=== PATIENT | female | born 1945 | race Two or more races ===

== ENCOUNTER → 2024-12-22 | Outpatient (CLI) | payer MEDICAID, SELFPAY ==
--- NOTE | 2024-12-22 15:00 | XR_ITS ---
Examination: Screening digital mammography, bilateral Computer aided detection 3-D breast Tomosynthesis, bilateral Date and time of exam: December 22, 2024 1503 hours Compared to mammograms dating to October 05, 2011 Indication: Screening Technique: Nonmagnified MLO, CC views of the breasts to been obtained, reconstructed from 3-D Tomosynthesis images. R2 computer aided detection program utilized for evaluation of suspicious masses and/or abnormal calcifications. 3-D Tomosynthesis images obtained. Findings: Scattered areas of fibroglandular density. 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 Recommend 1 year follow-up mammogram.
[2024-12-22 16:54] LABS: Albumin, Serum 3.9 gm/dL (3.4-4.8); Anion Gap 8 (7-16); BUN/Creatinine Ratio 19 Ratio (12-20); Blood Urea Nitrogen 15 mg/dL (9-23); Calcium 9.4 mg/dL (8.3-10.6); Calcium (Corrected) 9.5 mg/dL (8.5-10.1); Carbon Dioxide 28.5 mMol/L (20.0-31.0); Chloride 108 mMol/L (98-107); Creatinine (Component) 0.8 mg/dL (0.6-1.3); Glucose 84 mg/dL (74-106); Osmolality,Calculated 286 (275-295); Phosphorous 3.8 mg/dL (2.4-5.1); Potassium 4.5 mMol/L (3.4-5.1); Sodium 144 mMol/L (136-145); eGFR > 60 See Note
== END | disposition home or self-care (01) ==
LOC: CDIM 14:44 → COPL 15:15
PROVIDERS: Referring Provider Internal Medicine; Visit Provider Radiology Diagnostic Radiology
DX: Z12.31 Encounter for screening mammogram for malignant neoplasm of breast (principal); R92.8 Other abnormal and inconclusive findings on diagnostic imaging of breast; R92.323 Mammographic fibroglandular density, bilateral breasts; I10 Essential (primary) hypertension
CPT/HCPCS: 36415; 77063; 77067; 80069

== ENCOUNTER → 2025-06-17 | Outpatient (CLI) | payer OTHER, MEDICAID, SELFPAY ==
--- NOTE | 2025-06-17 08:41 | XR_ITS ---
Examination: Abdomen sonogram, Limited Date and time of exam: June 17, 2025 0923 hours INDICATIONS: Right upper abdominal pain beginning one year ago Technique: Real-time saenz scale transabdominal sonographic images of the upper abdomen obtained. Findings: Multiple gallstones, gallbladder sludge Gallbladder wall is thickened 0.8 cm with edema Common bile duct 0.6 cm Pancreatic head 1.4 cm Liver 14.7 cm fatty infiltration Normal hepatopedal portal venous flow Patent IVC IMPRESSION: Acute appearing calculus cholecystitis, consider HIDA scan follow-up
[2025-06-17 10:34] LABS: Basophils # (Auto) 0.0 Thou/mm3 (0.0-0.2); Basophils % (Auto) 0 % (0-2.5); Eosinophils # (Auto) 0.1 Thou/mm3 (0.0-0.5); Eosinophils % (Auto) 1 % (0-10); Hematocrit 40.1 % (36.0-46.0); Hemoglobin 13.0 g/dL (12.0-16.0); Immature Granulocytes Auto 0.05 Thou/mm3 (0.00-0.00); Lymphocytes # (Auto) 1.2 Thou/mm3 (1.0-4.8); Lymphocytes % (Auto) 12 % (10-50); Mean Corpuscular HGB Conc 32.4 g/dl (31.0-37.0); Mean Corpuscular Hemoglobin 25.6 pg (25.0-35.0); Mean Corpuscular Volume 79 fL (80-100); Monocytes # (Auto) 1.0 Thou/mm3 (0.0-0.8); Monocytes % (Auto) 10 % (0-12); Neutrophils # (Auto) 7.4 Thou/mm3 (1.8-7.7); Neutrophils % (Auto) 76 % (37-80); Nucleated Red Blood Cell # 0.00 Thou/mm3 (0.00-0.00); Nucleated Red Blood Cell % 0 /100 WBC (0); Platelet Count 174 Thou/mm3 (140-440); RDW Standard Deviation 46.1 fL (36.4-46.3); Red Blood Count 5.07 Miln/mm3 (4.00-5.20); White Blood Count 9.8 Thou/mm3 (3.6-11.0)
[2025-06-17 10:41] LABS: Glucose Estimated Average 131 mg/dL (80-131); Hemoglobin A1C 6.2 % Hgb (4.8-6.0)
[2025-06-17 10:56] LABS: Alanine Aminotransferase 29 U/L (10-49); Albumin, Serum 4.0 gm/dL (3.4-4.8); Albumin/Globulin Ratio 1.4 (1.2-2.2); Alkaline Phosphatase 178 U/L (46-116); Anion Gap 9 (7-16); Aspartate Amino Transferase 26 U/L (0-34); BUN/Creatinine Ratio 23 Ratio (12-20); Bilirubin,Total 0.5 mg/dL (0.3-1.2); Blood Urea Nitrogen 23 mg/dL (9-23); Calcium 9.4 mg/dL (8.3-10.6); Calcium (Corrected) 9.4 mg/dL (8.5-10.1); Carbon Dioxide 26.0 mMol/L (20.0-31.0); Cardiac Risk Estimate 4.3 RATIO (3.7-5.6); Chloride 103 mMol/L (98-107); Cholesterol 147 mg/dL (132-200); Creatinine (Component) 1.0 mg/dL (0.6-1.3); Globulin 2.8 gm/dL (2.3-3.5); Glucose 95 mg/dL (74-106); HDL Cholesterol 34 mg/dL (40-60); LDL Cholesterol,Calculated 92 mg/dL (0-130); Osmolality,Calculated 279 (275-295); Potassium 4.1 mMol/L (3.4-5.1); Sodium 138 mMol/L (136-145); Thyroid Stimulating Hormone 2.05 uIU/mL (0.55-4.78); Total Protein 6.8 gm/dL (5.7-8.2); Triglycerides 107 mg/dL (30-150); Uric Acid 6.9 mg/dL (3.1-7.8); eGFR 57 See Note
[2025-06-17 11:02] LABS: Vitamin B12 > 2000 pg/mL (211-911); Vitamin D 25 Hydroxy Total 30.1 ng/mL (7.3-40.2)
[2025-06-17 11:12] LABS: Collection Type, Urine Clean Catch
[2025-06-17 12:17] LABS: Bacteria,Urine Rare; Bilirubin,Urine Negative (Negative); Blood,Urine Trace (Negative); Clarity,Urine Clear (Clear/Hazy); Color,Urine Lt-Yellow (Lt Yel-Yel); Glucose, Urine Negative (Negative); Ketones,Urine Negative (Negative); Leukocyte Esterase,Urine Positive (Negative); Nitrite,Urine Negative (Negative); PH,Urine 6.0 (5.0-7.0); Protein,Urine Negative (Neg - Trace); RBC,Urine 2 /hpf (0-3); Specific Gravity,Urine 1.012 (1.001-1.035); Squamous Epithelial Cell,Urine 2 /hpf (0-5); Urobilinogen,Urine Negative mg/dL (0.0-1.0); WBC,Urine 6 /hpf (0-5)
== END | disposition home or self-care (01) ==
LOC: CDIM 08:38 → COPL 09:41
PROVIDERS: PCP Internal Medicine; Referring Provider Internal Medicine; Visit Provider Internal Medicine
DX: R10.11 Right upper quadrant pain (principal); Z00.00 Encounter for general adult medical examination without abnormal findings; I10 Essential (primary) hypertension
CPT/HCPCS: 36415; 76705; 80053; 80061; 81001; 82306; 82607; 83036; 84443; 84550; 85025

== ENCOUNTER 2025-06-18 12:24 | Emergency (ER) | payer OTHER, MEDICAID, SELFPAY ==
[2025-06-18 13:00] VITALS: BP 132/81; PULSE 77; RESP 18; TEMP 37.3; O2SAT 99; BMI 32.5
--- NOTE | 2025-06-18 13:04 | EKG_ITS ---
[facility] Test Date: 2025-06-18 Pat Name: KEREN ANDREWS Department: Room: - Gender: Female Healthcare Consultant: : 1945 Requested By: Mathew Mireles Order Number: [id number] Reading MD: Mathew Mireles Measurements Intervals [place] Rate: 75 P: 20 AK: 155 QRS: -26 QRSD: 93 T: 14 QT: 364 QTc: 409 Interpretive Statements SINUS RHYTHM BORDERLINE LEFT AXIS DEVIATION [QRS AXIS < -20] Compared to ECG 06/27/2022 10:52:50 Sinus bradycardia no longer present /store/S0/[id number]/[id number].pdf
--- NOTE | 2025-06-18 13:08 | XR_ITS ---
Examination: Venous duplex lower extremity sonogram, bilateral. Date and time of exam: June 18, 2025 1346 hours INDICATIONS: Leg pain beginning one week ago Technique: Multiple sonographic images of the deep venous system have been obtained. B-mode/2-D grayscale imaging of vascular structures and Doppler spectral analysis (waveforms) and color performed Both legs are examined. Findings: Deep venous systems do not demonstrate abnormal echogenicity. All visualized deep veins exhibit compressibility. All visualized deep veins exhibit augmentation. Impression: Negative for deep vein thrombosis
--- NOTE | 2025-06-18 13:09 | XR_ITS ---
Examination: CT abdomen and pelvis without contrast. Coronal 3-D reconstructions. Sagittal 2-D reconstructions. Date and time of exam:June 18, 2025 1311 hours INDICATIONS: Generalized abdominal pain today CTDI: vol (mGy): 9.49 DLP: (mGycm): 536 Technique: Axial images of the abdomen have been obtained, 3 mm slice thickness Intravenous contrast material has not been administered. Low dose protocols were performed. One or more of the following dose reduction techniques were used; automated exposure control, adjustment of the mA and/or KV according to patient size, use of iterative reconstruction technique. Findings: No focal liver or splenic lesions Abnormal gallbladder, gallstones, gallbladder distended with thickened gallbladder wall No pancreatic mass Fat-containing 21 mm left adrenal nodule No renal or ureteral calculi, no hydronephrosis No bowel obstruction Normal appendix Colonic diverticulosis, no diverticulitis Urinary bladder intact Right hip arthroplasty with satisfactory alignment IMPRESSION: Acute calculus cholecystitis
[2025-06-18] MEDS: ACETAMINOPHEN 500 MG TABLET PO (13:24)
[2025-06-18 13:34] LABS: Basophils # (Auto) 0.0 Thou/mm3 (0.0-0.2); Basophils % (Auto) 0 % (0-2.5); Eosinophils # (Auto) 0.1 Thou/mm3 (0.0-0.5); Eosinophils % (Auto) 1 % (0-10); Hematocrit 37.8 % (36.0-46.0); Hemoglobin 12.0 g/dL (12.0-16.0); Immature Granulocytes Auto 0.06 Thou/mm3 (0.00-0.00); Lymphocytes # (Auto) 1.4 Thou/mm3 (1.0-4.8); Lymphocytes % (Auto) 15 % (10-50); Mean Corpuscular HGB Conc 31.7 g/dl (31.0-37.0); Mean Corpuscular Hemoglobin 25.2 pg (25.0-35.0); Mean Corpuscular Volume 79 fL (80-100); Monocytes # (Auto) 0.9 Thou/mm3 (0.0-0.8); Monocytes % (Auto) 10 % (0-12); Neutrophils # (Auto) 6.6 Thou/mm3 (1.8-7.7); Neutrophils % (Auto) 73 % (37-80); Nucleated Red Blood Cell # 0.00 Thou/mm3 (0.00-0.00); Nucleated Red Blood Cell % 0 /100 WBC (0); Platelet Count 231 Thou/mm3 (140-440); RDW Standard Deviation 45.6 fL (36.4-46.3); Red Blood Count 4.76 Miln/mm3 (4.00-5.20); White Blood Count 9.1 Thou/mm3 (3.6-11.0)
[2025-06-18 13:48] LABS: INR 1.2 (0.9-1.3); Prothrombin Time 12.6 Seconds (9.0-12.2)
[2025-06-18 13:53] LABS: Collection Type, Urine Clean Catch
[2025-06-18 13:53] LABS: Alanine Aminotransferase 28 U/L (10-49); Albumin, Serum 4.1 gm/dL (3.4-4.8); Albumin/Globulin Ratio 1.4 (1.2-2.2); Alkaline Phosphatase 187 U/L (46-116); Anion Gap 8 (7-16); Aspartate Amino Transferase 28 U/L (0-34); BUN/Creatinine Ratio 19 Ratio (12-20); Bilirubin,Total 0.5 mg/dL (0.3-1.2); Blood Urea Nitrogen 19 mg/dL (9-23); Calcium 9.5 mg/dL (8.3-10.6); Calcium (Corrected) 9.5 mg/dL (8.5-10.1); Carbon Dioxide 24.4 mMol/L (20.0-31.0); Chloride 106 mMol/L (98-107); Creatinine (Component) 1.0 mg/dL (0.6-1.3); Estimated Creatinine Clearance 40.1 mL/min (>60); Globulin 3.0 gm/dL (2.3-3.5); Glucose 97 mg/dL (74-106); Lipase 28 U/L (12-53); Osmolality,Calculated 277 (275-295); Potassium 4.3 mMol/L (3.4-5.1); Sodium 138 mMol/L (136-145); Total Protein 7.1 gm/dL (5.7-8.2); eGFR 57 See Note
[2025-06-18 14:07] LABS: Bacteria,Urine 1+; Bilirubin,Urine Negative (Negative); Blood,Urine Negative (Negative); Clarity,Urine Clear (Clear/Hazy); Color,Urine Yellow (Lt Yel-Yel); Glucose, Urine Negative (Negative); Ketones,Urine Negative (Negative); Leukocyte Esterase,Urine Positive (Negative); Nitrite,Urine Negative (Negative); PH,Urine 5.5 (5.0-7.0); Protein,Urine Negative (Neg - Trace); RBC,Urine 2 /hpf (0-3); Specific Gravity,Urine 1.014 (1.001-1.035); Squamous Epithelial Cell,Urine 3 /hpf (0-5); Urobilinogen,Urine Negative mg/dL (0.0-1.0); WBC,Urine 5 /hpf (0-5)
[2025-06-18 14:43] LABS: Culture Indicated,Urine Yes
--- NOTE | 2025-06-18 15:20 | PD.EDABDPN ---
ED Abdominal Pain RME/HPI General Chief Complaint: Abdominal Pain Stated complaint: ABNORMAL LABS FROM [facility] WITH ABD PAIN Time seen by provider: 06/18/25 12:58 Arrival date/time: 06/18/25 12:24 RME / HPI RME / HPI narrative: 80-year-old female patient came in for evaluation regarding pelvic pain. Patient has been having pelvic pain for the last few days associated with bilateral lower extremity pain also. Patient also complained that her bilateral lower extremity is weaker than usual however patient is ambulatory with cane. Patient denies any vomiting denies any fever denies any other complaints no medications taken prior to arrival. Related Data Home Medications ?Medication ?Instructions ?Recorded ?Confirmed ascorbic acid (vitamin C) 500 mg 500 mg PO QDAY 06/27/22 06/27/22 tablet (Vitamin C) cholecalciferol (vitamin D3) 25 25 mcg PO QDAY 06/27/22 06/27/22 mcg (1,000 unit) capsule (Vitamin D3) lisinopril 10 mg tablet 1 tab PO DAILY 06/27/22 06/27/22 propranolol 20 mg tablet 1 tab PO BID 06/27/22 06/27/22 vitamin B12 500 mcg-folic acid 400 1 tab PO QDAY 06/27/22 06/27/22 mcg tablet Previous Rx's ?Medication ?Instructions ?Recorded cefuroxime axetil 500 mg tablet 500 mg PO BID #14 tabs 06/18/25 Allergies Allergy/AdvReac Type Severity Reaction Status Date / Time No Known Allergies Allergy Verified 06/18/25 12:29 Review of Systems Review of Systems Narrative Review of Systems: Review of system reviewed and within normal limits except mentioned in HPI ED Exam Narrative Physical exam: VITAL SIGNS: Reviewed. GENERAL APPEARANCE: Alert and interactive, follows commands, no acute distress, HEAD AND FACE: Non-traumatic. ENT: PERRL, pink conjunctivitis, eyelid no trauma, Mucous membrane moist. NECK: Supple, nontender, no nuchal rigidity. CHEST: No tenderness, no crepitus, no paradoxical movement, no retractions. LUNGS: Clear, well ventilated, symmetric, no rales, no wheezing, no ronchi, no stridor, good breath sounds bilaterally. HEART: Regular rate, regular rhythm, no murmur, no gallops. ABDOMEN: Soft, positive bowel sounds, nondistended, no guarding, lower abdominal tenderness, no tenderness to the right upper quadrant. No rebound, no masses, RECTAL: Deferred. GENITAL: Deferred. NEUROLOGICAL: Gross motor function intact sensory function intact, Appropriate for age. MUSCULOSKELETAL: low back nontender, full range of motion. EXTREMITIES: Nontender, full range of motion. SKIN: Color pink, dry, no rash, no lacerations, no abrasions, no contusions. LYMPHATICS: Deferred. Course Quality Measures none Orders Category Date Time Status EKG (ED ONLY) *Do not use* NOW Care 06/18/25 13:[address] abdomen pelvis wo con Stat Exams 06/18/25 13:09 Completed EKG (ED Only) Stat Exams 06/18/25 13:04 Draft US venous doppler LE BI Stat Exams 06/18/25 13:08 Completed CBC Stat Lab 06/18/25 13:28 Completed Comprehensive Metabolic Panel Stat Lab 06/18/25 13:28 Completed Lipase Stat Lab 06/18/25 13:28 Completed Prothrombin Time with INR Stat Lab 06/18/25 13:28 Completed UA, C/S IF [Urinalysis, C/S if Indicated] Stat Lab 06/18/25 13:40 Completed Urine Culture Stat Lab 06/18/25 13:40 Received Acetaminophen Tab [Tylenol ES Tab] Med 06/18/25 13:12 Discontinued 500 mg PO X1 ONE Vital Signs Vital signs: Vital Signs Temperature 99.2 F 06/18/25 13:00 Pulse Rate 77 06/18/25 13:00 Respiratory Rate 18 06/18/25 13:00 Blood Pressure 132/81 H 06/18/25 13:00 Pulse Oximetry (%) 99 06/18/25 13:00 Abdominal Pain MDM MDM Narrative MDM Narrative:: 80-year-old female patient came in for evaluation regarding pelvic pain. Patient has been having pelvic pain for the last few days associated with bilateral lower extremity pain also. Patient also complained that her bilateral lower extremity is weaker than usual however patient is ambulatory with cane. Patient denies any vomiting denies any fever denies any other complaints no medications taken prior to arrival. Urinalysis positive for UTI. CBC showed no leukocytosis, LFTs are normal total bili is normal. CT scan of the abdomen and pelvis showed possible acute calculus cholecystitis. However patient is not having any tenderness to the right upper quadrant pain. Clinically patient is not showing any sign of acute cholecystitis. Patient will be sent home on antibiotic for UTI. Ultrasound of the lower extremity bilateral also came back unremarkable. Patient was advised to return to the emergency for fever, abdominal pain specially in the right upper quadrant, vomiting and not feeling well. Patient agrees with the plan. Patient data External records reviewed:: None Clinical information provided by:: patient and family Social determinants that could affect healthcare access:: none Patient has the following chronic illnesses:: Hypertension How is presenting disease/condition affected by chronic disease/condition?: uneffected by Evaluation data The following diagnostics were reviewed and interpreted by me:: lab results, radiology exam(s) and EKG tracing(s) Lab and/or radiology exams considered but not ordered:: None Interpretation Summary: EKG showed normal sinus rhythm, ventricular rate of 75 bpm, no ST segment elevation or depression noted. See results in MDM the rest of the labs and CT scan Medications / Prescriptions Medications or Prescriptions considered but not ordered:: None Medication administrations:: Medication Administration History Discontinued Medications Acetaminophen (Acetaminophen 500 Mg Tablet) 500 mg PO X1 ONE Stop: 06/18/25 13:13 Last Admin: 06/18/25 13:24 Dose: 500 mg Documented By: Tylenol Consultations Consultation(s) initiated? (list below): No Diagnosis Differential diagnosis abdominal pain: abdominal pain and diverticulitis Most likely diagnosis given after review of the tests above:: UTI, Admission Indicated Admission indicated?: not indicated Admission Request Was there a request for admission?: No Disposition Plan Disposition Plan: Discharge Discharge Attestation Discharge Attestation: The patient and all family members were given an opportunity to ask questions and understood the discharge instructions. Discharge instructions specifically effects, indications for sooner follow up or return to the emergency department, and the expected course of current diagnosis. Patient condition: Stable Discharge Plan Plan Patient Disposition: HOME (Self Care) Discharge Disposition comment: Stable Prescriptions/Referrals Prescriptions/Med Rec: New cefuroxime axetil 500 mg tablet 500 mg PO BID Qty: 14 0RF No Action ascorbic acid (vitamin C) [Vitamin C] 500 mg Tablet 500 mg PO QDAY lisinopril 10 mg tablet 1 tab PO DAILY propranolol 20 mg tablet 1 tab PO BID Patient Comments: TAKE 1 TABLET BY MOUTH TWICE DAILY cholecalciferol (vitamin D3) [Vitamin D3] 25 mcg (1,000 unit) Capsule 25 mcg PO QDAY vitamin [id number] acid 500-400 mcg Tablet 1 tab PO QDAY Rx Instructions: administer with a meal Referrals: Jing Vásquez MD [Primary Care Provider] - In 1 week Problem List Clinical Impression: UTI (urinary tract infection), Gallstone Patient/Caregiver Discharge Instructions Discharge Activity: activity as tolerated Education Materials: Treating Gallstones Additional Instructions: Thank you for the opportunity for serving you today. You are stable for discharged . You are advised to: Follow-up with your PCP in 1 to 2 days Return to ED for worsening of symptoms, fever, right upper quadrant pain Increase oral fluids Take medication as prescribed Please avoid eating fatty, greasy, fried foods As your PCP to refer you to a surgeon. Regarding your gallstone Print Language: Finnish Stand Alone Forms: [employer]ola Award Info., Patient Portal Info Letter PA/ROBOTICS MECHANIC Supervising Physician PA/ROBOTICS MECHANIC Supervising Physician: MD Court
[2025-06-18 15:25] VITALS: BP 123/70; PULSE 70; RESP 16; TEMP 37.1; O2SAT 99
== END 2025-06-18 16:00 | disposition home or self-care (01) ==
PROVIDERS: Nurse Practitioner Family; Emergency Provider Family Medicine; PCP Internal Medicine
DX: N39.0 Urinary tract infection, site not specified (principal); K80.20 Calculus of gallbladder without cholecystitis without obstruction; M79.604 Pain in right leg; M79.605 Pain in left leg; R94.31 Abnormal electrocardiogram [ECG] [EKG]
CPT/HCPCS: 36415; 74176; 80053; 81001; 83690; 85025; 85610; 87086; 93005; 93970; 99283; A9270

== ENCOUNTER 2025-06-30 08:43 | Inpatient (IN) | payer MEDICARE, MEDICAID, SELFPAY ==
[2025-06-30] VITALS (10 sets, daily range): BP systolic 147–168; BP diastolic 65–83; PULSE 50–81; RESP 13–18; TEMP 36.1–37.2; O2SAT 95–100; BMI 26.2
--- NOTE | 2025-06-30 09:06 | XR_ITS ---
Examination: Abdomen sonogram, Limited Date and time of exam: June 30, 2025 1025 hours INDICATIONS: Right upper abdominal pain beginning 2 weeks ago Technique: Real-time saenz scale transabdominal sonographic images of the upper abdomen obtained. Findings: Multiple gallstones Gallbladder wall 0.6 cm with edema Common bile duct 0.6 cm Pancreatic head 2.6 cm Liver 13.1 cm lobular contour fatty infiltration Normal hepatopedal portal venous flow Patent IVC IMPRESSION: Acute calculus cholecystitis, consider HIDA scan or MRCP follow-up
--- NOTE | 2025-06-30 09:06 | EKG_ITS ---
[facility] Test Date: 2025-06-30 Pat Name: KEREN ANDREWS Department: Room: - Gender: Female Cell Stripper: : 1945 Requested By: Rasheed Hernandez (DONNA) Order Number: [id number] Reading MD: Rasheed Hernandez (CHANCERY CLERK) Measurements Intervals [place] Rate: 80 P: 14 NH: 160 QRS: -41 QRSD: 89 T: 11 QT: 343 QTc: 398 Interpretive Statements SINUS RHYTHM LEFT AXIS DEVIATION [QRS AXIS < -30] POSSIBLE ANTERIOR MYOCARDIAL INFARCTION , PROBABLY OLD [30 ms Q WAVE IN V3/V4, OR R < 0.2 mV IN V4] Compared to ECG 06/18/2025 13:12:26 Myocardial infarct finding now present /store/S0/[id number]/[id number].pdf
--- NOTE | 2025-06-30 09:07 | PD.EDRME ---
Rapid Medical Screening Exam RME Arrival date/time: 06/30/25 08:43 80-year-old female presents to the Emergency Department for complaints of abdominal pain patient has recent diagnosis of gallstones patient reports pain persists Chief Complaint: General Adult/Misc Complain Vital signs: Vital Signs Temperature 99.0 F 06/30/25 08:54 Pulse Rate 81 06/30/25 08:54 Respiratory Rate 17 06/30/25 08:54 Blood Pressure 147/83 H 06/30/25 08:54 Pulse Oximetry (%) 97 06/30/25 08:54 Oxygen Delivery Method Room Air 06/30/25 08:54
[2025-06-30 09:58] LABS: Basophils # (Auto) 0.1 Thou/mm3 (0.0-0.2); Basophils % (Auto) 1 % (0-2.5); Eosinophils # (Auto) 0.2 Thou/mm3 (0.0-0.5); Eosinophils % (Auto) 3 % (0-10); Hematocrit 37.3 % (36.0-46.0); Hemoglobin 11.7 g/dL (12.0-16.0); Immature Granulocytes Auto 0.04 Thou/mm3 (0.00-0.00); Lymphocytes # (Auto) 1.5 Thou/mm3 (1.0-4.8); Lymphocytes % (Auto) 23 % (10-50); Mean Corpuscular HGB Conc 31.4 g/dl (31.0-37.0); Mean Corpuscular Hemoglobin 25.6 pg (25.0-35.0); Mean Corpuscular Volume 82 fL (80-100); Monocytes # (Auto) 0.5 Thou/mm3 (0.0-0.8); Monocytes % (Auto) 7 % (0-12); Neutrophils # (Auto) 4.3 Thou/mm3 (1.8-7.7); Neutrophils % (Auto) 65 % (37-80); Nucleated Red Blood Cell # 0.00 Thou/mm3 (0.00-0.00); Nucleated Red Blood Cell % 0 /100 WBC (0); Platelet Count 214 Thou/mm3 (140-440); RDW Standard Deviation 47.7 fL (36.4-46.3); Red Blood Count 4.57 Miln/mm3 (4.00-5.20); White Blood Count 6.6 Thou/mm3 (3.6-11.0)
[2025-06-30 10:12] LABS: Alanine Aminotransferase 21 U/L (10-49); Albumin, Serum 3.7 gm/dL (3.4-4.8); Albumin/Globulin Ratio 1.5 (1.2-2.2); Alkaline Phosphatase 100 U/L (46-116); Anion Gap 7 (7-16); Aspartate Amino Transferase 25 U/L (0-34); BUN/Creatinine Ratio 11 Ratio (12-20); Bilirubin,Total 0.5 mg/dL (0.3-1.2); Blood Urea Nitrogen 9 mg/dL (9-23); Calcium 9.3 mg/dL (8.3-10.6); Calcium (Corrected) 9.5 mg/dL (8.5-10.1); Carbon Dioxide 27.2 mMol/L (20.0-31.0); Chloride 110 mMol/L (98-107); Creatinine (Component) 0.8 mg/dL (0.6-1.3); Estimated Creatinine Clearance 50.8 mL/min (>60); Globulin 2.4 gm/dL (2.3-3.5); Glucose 106 mg/dL (74-106); INR 1.2 (0.9-1.3); Lipase 23 U/L (12-53); Osmolality,Calculated 285 (275-295); Partial Thromboplastin Time 28.7 Seconds (22.0-36.0); Potassium 4.3 mMol/L (3.4-5.1); Prothrombin Time 13.2 Seconds (9.0-12.2); Sodium 144 mMol/L (136-145); Total Protein 6.1 gm/dL (5.7-8.2); Troponin I < 0.020 ng/mL (0.0-0.045); eGFR > 60 See Note
[2025-06-30 10:13] LABS: Collection Type, Urine Clean Catch
[2025-06-30 10:20] LABS: Bacteria,Urine Rare; Bilirubin,Urine Negative (Negative); Blood,Urine Negative (Negative); Clarity,Urine Clear (Clear/Hazy); Color,Urine Yellow (Lt Yel-Yel); Culture Indicated,Urine Not Indicated; Glucose, Urine Negative (Negative); Ketones,Urine Negative (Negative); Leukocyte Esterase,Urine Positive (Negative); Nitrite,Urine Negative (Negative); PH,Urine 5.5 (5.0-7.0); Protein,Urine Negative (Neg - Trace); RBC,Urine 1 /hpf (0-3); Specific Gravity,Urine 1.011 (1.001-1.035); Squamous Epithelial Cell,Urine 1 /hpf (0-5); Urobilinogen,Urine Negative mg/dL (0.0-1.0); WBC,Urine 3 /hpf (0-5)
--- NOTE | 2025-06-30 11:59 | PD.EDABDPN ---
ED Abdominal Pain RME/HPI General Chief Complaint: General Adult/Misc Complain Stated complaint: GALLSTONES; SENT BY DR. VÁSQUEZ Time seen by provider: 06/30/25 11:35 Arrival date/time: 06/30/25 08:43 80-year-old female with with a history of hypertension presents to the emergency room with a chief complaint of right upper quadrant abdominal pain that radiates to the epigastric area x 3 days. Patient states she was seen by her primary care provider and was told she has gallstones. Source: patient Mode of arrival: ambulatory Limitations: no limitations RME / HPI RME / HPI narrative: 06/30/25 08:43 80-year-old female presents to the Emergency Department for complaints of abdominal pain patient has recent diagnosis of gallstones patient reports pain persists Related Data Home Medications ?Medication ?Instructions ?Recorded ?Confirmed ascorbic acid (vitamin C) 500 mg 500 mg PO QDAY 06/27/22 06/27/22 tablet (Vitamin C) cholecalciferol (vitamin D3) 25 25 mcg PO QDAY 06/27/22 06/27/22 mcg (1,000 unit) capsule (Vitamin D3) lisinopril 10 mg tablet 1 tab PO DAILY 06/27/22 06/27/22 propranolol 20 mg tablet 1 tab PO BID 06/27/22 06/27/22 vitamin B12 500 mcg-folic acid 400 1 tab PO QDAY 06/27/22 06/27/22 mcg tablet Previous Rx's ?Medication ?Instructions ?Recorded cefuroxime axetil 500 mg tablet 500 mg PO BID #14 tabs 06/18/25 Allergies Allergy/AdvReac Type Severity Reaction Status Date / Time No Known Allergies Allergy Verified 06/30/25 08:49 Review of Systems Review of Systems Systems Reviewed: All systems reviewed, normal except as documented Constitutional Constitutional: Reports system reviewed and no additional complaints, except as documented, Denies fatigue, Denies fever(s), Denies headache(s) and Denies weakness Eyes Eyes: Reports system reviewed and no additional complaints, except as documented, Denies blurry vision and Denies change in vision ENT Ears, Nose, Mouth, and Throat: Reports system reviewed and no additional complaints, except as documented, Denies otalgia, Denies headache(s), Denies nasal congestion, Denies throat swelling and Denies vertigo Cardiovascular Cardiovascular: Reports system reviewed and no additional complaints, except as documented, Denies chest pain, Denies dyspnea and Denies dyspnea on exertion Respiratory Respiratory: Reports system reviewed and no additional complaints, except as documented, Denies chest congestion, Denies cough, Denies dyspnea, Denies dyspnea on exertion and Denies wheezing Gastrointestinal Gastrointestinal: Reports system reviewed and no additional complaints, except as documented, Reports abdominal pain, Reports cramping, Reports nausea and Denies vomiting Genitourinary Genitourinary: Reports system reviewed and no additional complaints, except as documented Musculoskeletal Musculoskeletal: Reports system reviewed and no additional complaints, except as documented and Denies back pain Integumentary/Breasts Skin/Breast: Reports system reviewed and no additional complaints, except as documented and Denies wounds Neurologic Neurologic: Reports system reviewed and no additional complaints, except as documented, Denies confusion, Denies headache(s), Denies lack of coordination, Denies vertigo and Denies weakness Psychiatric Psychiatric: Reports system reviewed and no additional complaints, except as documented, Denies anxiety, Denies confusion, Denies depression, Denies paranoia, Denies suicidal ideation and Denies tactile hallucinations Endocrine Endocrine: Reports system reviewed and no additional complaints, except as documented and Denies fatigue Hematologic/Lymphatic Hematologic/Lymphatic: Reports system reviewed and no additional complaints, except as documented and Denies lymphadenopathy Allergic/Immunologic Allergic/Immunologic: Reports system reviewed and no additional complaints, except as documented, Denies throat swelling, Denies urticaria and Denies wheezing Past Medical History Past Medical History NEUROLOGIC: Negative Neurological Disorders or Seizures CARDIAC: Positive Cardiac Disorders, Hypertension (TAKES MED) and Varicose Veins (RIGHT LEG VARICOSE VEIN FOR THIS PROC); Negative Congestive Heart Failure, Edema or Cellulitis (BRUISING ON LEFT LOWER EXTREMITY SINCE AT 19YRS OLD) RESPIRATORY: Negative Chronic Obstructive Pulmonary Disease (COPD), Tuberculosis, Pulmonary Embolism or Sleep Apnea GASTROINTESTINAL: Negative Gastrointestinal Disorders or Hepatitis GENITOURINARY: Negative Genitourinary Disorders or Renal Disease REPRODUCTIVE: Positive Previous Pregnancies (2) MUSCULOSKELETAL: Positive Musculoskeletal Disorders and Arthritis ENDOCRINE: Negative Endocrine Disorders, Diabetes Mellitus Type 1 or Diabetes Mellitus Type 2 HEMATOLOGIC: Negative Blood Disorders OTHER HISTORY: Positive Chicken Pox; Negative Hospitalization, Autoimmune Disease, Shingles, Falls, Blood Transfusions, Blood Transfusion Reaction, Anesthesia Reactions, Chemotherapy, Radiation Therapy, MRSA, Measles, Mumps or Cancer Family History FAMILY HISTORY: Positive Family Cardiac Disorders (MOTHER (HEART,[place])) and Family Cancer (FATHER (PROSTATE)); Negative Family Psychiatric Problems, Family Respiratory Disorders, Family Gastrointestinal Problems, Family Surgery or Family Anesthesia Reaction Surgical History SURGICAL: Positive Joint Replacement (RIGHT HIP), Hysterectomy (TVH) and Section (1); Negative Cardiac Surgery or Pacemaker Social History SMOKING STATUS: Never smoker ED Exam General Limitations: Present no limitations General appearance: Present alert and in no apparent distress Head Head exam: Present atraumatic Eye Eye exam: Present normal appearance, PERRL and EOMI ENT ENT exam: Present normal exam, normal oropharynx and mucous membranes moist Neck Neck exam: Present normal inspection, full ROM and trachea midline Chest Chest inspection: Present normal inspection and symmetric chest wall rise Respiratory Respiratory exam: Present normal lung sounds bilaterally Cardiovascular Cardiovascular exam: Present regular rate, normal rhythm and normal heart sounds Abdominal Exam Abdominal exam: Present soft, tenderness, normal bowel sounds and Talley's sign; Absent tenderness at McBurney's Point Abdominal tenderness: Present RUQ and moderate Extremities Exam Extremities exam: Present normal inspection and full ROM Back Exam Back exam: Present normal inspection and full ROM Neurological Exam Neurological exam: Present alert, oriented X3 and CN II-XII intact Psychiatric Psychiatric exam: Present normal affect and normal mood Skin Skin exam: Present warm, dry, intact and normal color Course Quality Measures none Orders Category Date Time Status Admit to Inpatient Status Routine Admission 06/30/25 12:54 Active COVID-19 Screening Questionnaire NOW Care 06/30/25 12:17 Completed Consent [Obtain Written Consent For:] .NOW Care 06/30/25 12:16 Completed Decision to Admit X1 Care 06/30/25 12:16 Completed EKG (ED ONLY) *Do not use* NOW Care 06/30/25 09:06 Completed NPO NOW Care 06/30/25 12:54 Completed Consult to General Surgery Stat Cons 06/30/25 12:02 Ordered Consult to General Surgery Stat Cons 06/30/25 12:54 Ordered Diet NPO (NOW) Diet 06/30/25 12:54 Active EKG (ED Only) Stat Exams 06/30/25 09:06 Draft US gall bladder Stat Exams 06/30/25 09:06 Completed CBC Stat Lab 06/30/25 09:43 Completed Comprehensive Metabolic Panel Stat Lab 06/30/25 09:43 Completed Lipase Stat Lab 06/30/25 09:43 Completed PT [Prothrombin Time with INR] Stat Lab 06/30/25 09:43 Completed PTT [Partial Thromboplastin Time] Stat Lab 06/30/25 09:43 Completed Troponin I Stat Lab 06/30/25 09:43 Completed UA, C/S IF [Urinalysis, C/S if Indicated] Stat Lab 06/30/25 09:50 Completed Morphine Inj Med 06/30/25 12:53 Discontinued 2 mg IVP Q4HR PRN Code Status Routine Oth 06/30/25 12:55 Completed Vital Signs Vital signs: Vital Signs Temperature 99.0 F 06/30/25 08:54 Pulse Rate 81 06/30/25 08:54 Respiratory Rate 17 06/30/25 08:54 Blood Pressure 147/83 H 06/30/25 08:54 Pulse Oximetry (%) 97 06/30/25 08:54 Oxygen Delivery Method Room Air 06/30/25 08:54 Abdominal Pain MDM MDM Narrative MDM Narrative:: 80-year-old female with with a history of hypertension presents to the emergency room with a chief complaint of right upper quadrant abdominal pain that radiates to the epigastric area x 3 days. Patient states she was seen by her primary care provider and was told she has gallstones. Patient is hemodynamically stable and in no apparent distress Physical examination shows right upper quadrant abdominal pain and tenderness. The patient has a positive Talley sign. Liver enzymes and bilirubin are within normal limits Ultrasound of the gallbladder was completed and shows acute calculus cholecystitis. Dr. Greenwood the general surgeon on-call was consulted and he will do surgery on the patient later today for acute cholecystitis. Dr. Vásquez her primary care provider will admit the patient. Patient data External records reviewed:: [facility] previous records Clinical information provided by:: patient Social determinants that could affect healthcare access:: none Patient has the following chronic illnesses:: Hypertension How is presenting disease/condition affected by chronic disease/condition?: uneffected by Evaluation data The following diagnostics were reviewed and interpreted by me:: lab results and radiology exam(s) Lab and/or radiology exams considered but not ordered:: Labs and radiology exams considered and ordered Interpretation Summary: Ultrasound gallbladder-Findings: Multiple gallstones Gallbladder wall 0.6 cm with edema Common bile duct 0.6 cm Pancreatic head 2.6 cm Liver 13.1 cm lobular contour fatty infiltration Normal hepatopedal portal venous flow Patent IVC IMPRESSION: Acute calculus cholecystitis, consider HIDA scan or MRCP follow-up Medications / Prescriptions Medications or Prescriptions considered but not ordered:: No medication given Medication administrations:: Medication Administration History Discontinued Medications Morphine Sulfate (Morphine Sulf Inj 10 Mg/Ml Vial) 2 mg IVP Q4HR PRN PRN Reason: PAIN No medication given Consultations Consultation(s) initiated? (list below): Yes Consultation #1 (Physician, Specialty, Details): Dr Greenwood, general surgeon on-call Time: 12:01 Diagnosis Differential diagnosis abdominal pain: abdominal pain and other (Cholelithiasis/cholecystitis) Most likely diagnosis given after review of the tests above:: Acute calculus cholecystitis Admission Indicated Admission indicated?: not indicated Admission Request Was there a request for admission?: Yes Admission Attestation Admission request attestation: Discussed case with [] from Hospitalist service regarding admission. Discussed patients ED course, exam findings, labs, and radiology results. The Hospitalist [agrees,declines] to accept the patient for admission. Disposition Plan Disposition Plan: Admit Discharge Plan Plan Patient Disposition: Admit Acute Care w/in Hospital Discharge Disposition comment: Stable Prescriptions/Referrals Prescriptions/Med Rec: No Action ascorbic acid (vitamin C) [Vitamin C] 500 mg Tablet 500 mg PO QDAY lisinopril 10 mg tablet 1 tab PO DAILY propranolol 20 mg tablet 1 tab PO BID Patient Comments: TAKE 1 TABLET BY MOUTH TWICE DAILY cholecalciferol (vitamin D3) [Vitamin D3] 25 mcg (1,000 unit) Capsule 25 mcg PO QDAY vitamin X28-gujle acid 500-400 mcg Tablet 1 tab PO QDAY Rx Instructions: administer with a meal cefuroxime axetil 500 mg tablet 500 mg PO BID Qty: 14 0RF Referrals: Jing Vásquez MD [Primary Care Provider] - In 1 week Problem List Clinical Impression: Acute calculous cholecystitis Patient/Caregiver Discharge Instructions Print Language: Algerian Stand Alone Forms: [employer] Award Info., Patient Portal Info Letter Attestation Attestation The patient was seen by the midlevel practitioner. I, the co-signing physician, was present during the entire ER visit. While I did not physically examine the patient, I was available for consultation as needed. I agree with the plan and documentation.
--- NOTE | 2025-06-30 13:14 | PC.NURSE ---
Report given to Jacki RN in surgery and patient picked up by OR nurses.
--- NOTE | 2025-06-30 13:16 | PD.SURCONS ---
HPI Consult details Consult date: 06/30/25 Reason for consultation narrative: Right upper quadrant abdominal pain with nausea and vomiting History of present illness: 80-year-old female with history of hypertension presenting to the emergency department with worsening abdominal pain. Patient was seen in the emergency department about 2 weeks ago she was found to have gallstones and was discharged home on antibiotics. She has had intermittent pain for the past 2 weeks that has been getting progressively worse over the past 3 days. She has had an episode of nausea and vomiting and has not been able to eat or tolerate any food. She denies fever, chills, jaundice or discoloration of urine or stool. Ultrasound revealed gallstones with gallbladder wall thickening and edema. Her laboratory workup has been unremarkable. Review of Systems Constitutional Constitutional: Denies chills, Denies fever(s), Denies headache(s) and Denies weakness ENT Ears, Nose, Mouth, and Throat: Denies headache(s) and Denies vertigo Cardiovascular Cardiovascular: Denies chest pain Respiratory Respiratory: Denies cough Gastrointestinal Gastrointestinal: Reports abdominal pain, Reports nausea and Reports vomiting Genitourinary Genitourinary: Denies difficulty voiding Musculoskeletal Musculoskeletal: Reports back pain Neurologic Neurologic: Denies headache(s), Denies vertigo and Denies weakness Hematologic/Lymphatic Hematologic/Lymphatic: Denies easy bleeding and Denies easy bruising Past Medical History Surgical History OTHER SURGICAL HX: , hysterectomy, total knee replacement, excision of varicose veins Social History SMOKING STATUS: Never smoker SUBSTANCE USE: does not use ALCOHOL: Never Meds Home Medications and Allergies Home Medications ?Medication ?Instructions ?Recorded ?Confirmed ?Type ascorbic acid (vitamin C) 500 mg 500 mg PO QDAY 06/27/22 06/30/25 History tablet (Vitamin C) cholecalciferol (vitamin D3) 25 25 mcg PO QDAY 06/27/22 06/30/25 History mcg (1,000 unit) capsule (Vitamin D3) lisinopril 10 mg tablet 1 tab PO BID 06/27/22 06/30/25 History propranolol 20 mg tablet 1 tab PO HS 06/27/22 06/30/25 History vitamin B12 500 mcg-folic acid 400 1 tab PO QDAY 06/27/22 06/30/25 History mcg tablet Allergies Allergy/AdvReac Type Severity Reaction Status Date / Time No Known Allergies Allergy Verified 06/30/25 08:49 Exam Vital Signs Temp Pulse Resp BP Pulse Ox O2 Del Method 97.9 F 67 17 168/81 H 98 Room Air 06/30/25 12:54 06/30/25 12:54 06/30/25 12:54 06/30/25 12:54 06/30/25 12:54 06/30/25 12:54 Constitutional Constitutional: no acute distress Routine HEENT Exam Eye: Present PERRL (Anicteric sclera) Routine Abdominal Exam Abdominal: Present soft, normoactive bowel sounds and tenderness (Right upper quadrant tenderness to palpation with guarding, positive Talley sign); Absent distended Results Results: Laboratory Laboratory results: results reviewed Results: Imaging US - abdomen: report reviewed and image reviewed Assessment & Plan Problem List (1) Acute calculous cholecystitis: Status: Acute Plan Will plan for laparoscopic possible open cholecystectomy. Risks include but not limited to infection, bleeding, injury to bowel, liver, stomach, bile duct, retained stone, bile leak, abdominal sepsis intra-abdominal abscess, need for further procedure and or operation, pneumonia and blood clot discussed with the patient via jacket preparer and her family. Benefits and alternatives explained to them, all their questions answered, they agreed and consented to proceed with the operation.
--- NOTE | 2025-06-30 13:25 | PD.NEPHHP ---
Documentation for date of: 06/30/25 History of Present Illness History of Present Illness Chief complaint: Abdominal pain History of present illness: Informant daughter Ms. Arroyo is a 80-year-old female with past medical history of hypertension presented to the emergency department 4 days ago with abdominal pain and had workup which showed acute calculus cholecystitis. Was discharged home on p.o. antibiotics to follow-up with me. Patient was seen in the office yesterday and recommended to go to the emergency department for further cholecystectomy. Pain continued to worsen that the she presented again to the ER today. Dr Greenwood was consulted and he is planning to take her for a cholecystectomy this afternoon. Patient currently seen in the emergency department. Did have some nausea and vomiting and decreased appetite for the last few days. Denies any fever or chills. No blood in the stools. Female with history of hypertension presenting to the emergency department with worsening abdominal pain. Patient was seen in the emergency department. Ultrasound revealed gallstones with gallbladder wall thickening and edema. CT scan showed acute calculus cholecystitis. Her laboratory workup has been unremarkable. Patient admitted to medical floor for cholecystectomy. Initiate with Dr Greenwood consultation. Review of Systems Review of Systems Narrative Review of Systems: CONSTITUTIONAL: Patient denies any fever, chills. HEENT: Denies any visual disturbances or hearing problems. CARDIOVASCULAR: Patient denies any chest pain, shortness of breath, swelling in the lower extremities. PULMONARY: Patient denies any shortness of breath, cough. GASTROINTESTINAL: Complaining of abdominal pain, nausea GENITOURINARY: Patient denies any urinary symptoms of burning or frequency or hematuria, denies any form in the urine. SKIN: Denies any rash. MUSCULOSKELETAL: Denies any muscular skeletal problems of joint pains. NEUROLOGICAL: Denies any neurological problems of strokes, seizures or confusion. Denies any memory problems. PSYCHIATRIC: Denies any depression or anxiety. LYMPHATICS : No lymphadenopathy Past Medical History Past Medical History NEUROLOGIC: Negative Neurological Disorders or Seizures CARDIAC: Positive Cardiac Disorders, Hypertension and Varicose Veins; Negative Congestive Heart Failure, Edema or Cellulitis RESPIRATORY: Negative Chronic Obstructive Pulmonary Disease (COPD), Tuberculosis, Pulmonary Embolism or Sleep Apnea GASTROINTESTINAL: Negative Gastrointestinal Disorders or Hepatitis GENITOURINARY: Negative Genitourinary Disorders or Renal Disease REPRODUCTIVE: Positive Previous Pregnancies MUSCULOSKELETAL: Positive Musculoskeletal Disorders and Arthritis ENDOCRINE: Negative Endocrine Disorders, Diabetes Mellitus Type 1 or Diabetes Mellitus Type 2 HEMATOLOGIC: Negative Blood Disorders OTHER HISTORY: Positive Chicken Pox; Negative Hospitalization, Autoimmune Disease, Shingles, Falls, Blood Transfusions, Blood Transfusion Reaction, Anesthesia Reactions, Chemotherapy, Radiation Therapy, MRSA, Measles, Mumps or Cancer Family History FAMILY HISTORY: Positive Family Cardiac Disorders and Family Cancer; Negative Family Psychiatric Problems, Family Respiratory Disorders, Family Gastrointestinal Problems, Family Surgery or Family Anesthesia Reaction Surgical History SURGICAL: Positive Joint Replacement, Hysterectomy and Section; Negative Cardiac Surgery or Pacemaker OTHER SURGICAL HX: , hysterectomy, total knee replacement, excision of varicose veins Social History SMOKING STATUS: Never smoker SUBSTANCE USE: does not use Meds Home Medications and Allergies Home Medications ?Medication ?Instructions ?Recorded ?Confirmed ?Type ascorbic acid (vitamin C) 500 mg 500 mg PO QDAY 06/27/22 06/30/25 History tablet (Vitamin C) cholecalciferol (vitamin D3) 25 25 mcg PO QDAY 06/27/22 06/30/25 History mcg (1,000 unit) capsule (Vitamin D3) lisinopril 10 mg tablet 1 tab PO BID 06/27/22 06/30/25 History propranolol 20 mg tablet 1 tab PO HS 06/27/22 06/30/25 History vitamin B12 500 mcg-folic acid 400 1 tab PO QDAY 06/27/22 06/30/25 History mcg tablet Allergies Allergy/AdvReac Type Severity Reaction Status Date / Time No Known Allergies Allergy Verified 06/30/25 08:49 Exam Vital Signs Temp Pulse Resp BP Pulse Ox O2 Del Method O2 Flow Rate 36.4 C 51 L 14 151/69 H 97 Room Air 4 06/30/25 15:41 06/30/25 15:41 06/30/25 15:41 06/30/25 15:41 06/30/25 15:41 06/30/25 12:54 06/30/25 15:27 Narrative Exam GENERAL APPEARANCE: Patient seems to be comfortable, adequately hydrated and nourished. HEENT: EOMI, PERRLA NECK: Neck supple, no JVD or bruit CARDIOVASCULAR: Heart regular, no murmurs LUNGS/CHEST: Chest clear to auscultation. No rales, rhonchi, wheezing ABDOMEN: Soft, tenderness noted in the epigastric and right upper quadrant EXTREMITIES: No edema, clubbing or cyanosis. SKIN: Skin exam normal without any rashes MUSCULOSKELETAL: Musculoskeletal exam normal PSYCHIATRIC: Normal mood, affect LYMPHATICS: No lymphadenopathy noted NEUROLOGICAL : No neurological deficits Results: Labs 06/30/25 09:43 06/30/25 09:43 Labs: Short CBC 06/30/25 Range/Units 09:43 WBC 6.6 (3.6-11.0) Thou/mm3 Hgb 11.7 L (12.0-16.0) g/dL Hct 37.3 (36.0-46.0) % Plt Count 214 (140-440) Thou/mm3 BMP 06/30/25 09:43 Sodium 144 Potassium 4.3 Chloride 110 H Carbon Dioxide 27.2 BUN 9 Creatinine 0.8 Glucose 106 Calcium 9.3 Cardiac Enzymes 06/30/25 Range/Units 09:43 Troponin I < 0.020 (0.0-0.045) ng/mL Liver Function 06/30/25 Range/Units 09:43 Total Bilirubin 0.5 (0.3-1.2) mg/dL AST 25 (0-34) U/L ALT 21 (10-49) U/L Alkaline Phosphatase 100 (46-116) U/L Albumin 3.7 (3.4-4.8) gm/dL Urine 06/30/25 Range/Units 09:50 Urine Color Yellow (Lt Yel-Yel) Urine Clarity Clear (Clear/Hazy) Urine pH 5.5 (5.0-7.0) Ur Specific [place] 1.011 (1.001-1.035) Urine Protein Negative (Neg - Trace) Urine Glucose (UA) Negative (Negative) Assessment & Plan Assessment and plan (1) Acute calculous cholecystitis: Status: Acute Assessment and plan: Patient presented with acute acalculous cholecystitis. Dr. Greenwood was consulted-will be taking her for cholecystectomy. Fluids, pain management ordered (2) HTN (hypertension), benign: Status: Acute Assessment and plan: Patient currently NPO. Once resumed-will give her home medication lisinopril and propranolol. Estimated length of stay 1 to 2 days CODE STATUS full code GI prophylaxis not needed DVT prophylaxis heparin postsurgery Diet n.p.o. Disposition Home Quality Measures Quality Measures none Advance care planning discussed with:: patient
--- NOTE | 2025-06-30 15:11 | SUR.PHASEI ---
1511 Patient arrived to recovery resting comfortably in [facility], on oxygen 8L via oxy mask with an oral airway in place, breathing unlabored, vital signs stable, dressing intact to abdomen; dermabond, no bleeding noted, report received from Dr. Ricketts and Gagan SIMPSON
--- NOTE | 2025-06-30 15:43 | ESOP_ITS ---
Date of Procedure 06/30/25 Pre Op Diagnosis Cholelithiasis with acute cholecystitis Post Op Diagnosis Cholelithiasis with acute cholecystitis Empyema of the gallbladder Procedure Laparoscopic cholecystectomy Findings Distended and very thick-walled gallbladder with multiple gallstones and pericholecystic edema. The gallbladder was filled with purulent fluid consistent with empyema of the gallbladder. Procedure Description Patient was brought into the operating room in supine position. After administration of general endotracheal anesthesia abdomen was prepped and draped in standard surgical manner. A Veress needle was inserted through the umbilicus and pneumoperitoneum was obtained up to 15 mmHg. The Veress needle was then removed, a 5 mm infraumbilical incision was made and the 5mm trocar was inserted. Laparoscopic camera was placed. Under direct visualization a laparoscopic camera a 10 mm trocar was placed in subxiphoid and two 5 mm trocars placed in right upper quadrant. The gallbladder was identified and was noted to be very distended, thick-walled and tense. It was decompressed with an aspirator, the contents were purulent fluid consistent with empyema of the gallbladder. It was retracted cephalad and laterally. Dissection started near the infundibulum of gallbladder where cystic duct and gallbladder junction clearly identified. The cystic duct was circumferentially dissected off the peritoneum and surrounding inflammatory tissue. There were significant amount of inflammatory reaction near the infundibulum of the gallbladder. The critical view of safety was clearly demonstrated. Cystic duct was then divided between 2 endoclips proximally and one distally. Because of the significant amount of i nflammatory reaction I elected to place an PDS Endoloop around the cystic duct stump. The cystic artery was divided between 2 endoclips proximally and 1 distally. The gallbladder was then from the liver bed using electrocautery. The gallbladder was then placed inside an Endo Catch and removed from the abdomen utilizing subxiphoid trocar site. The area was copiously and thoroughly washed and irrigated, all the fluid was suctioned and the suction fluid returned clear. Hemostasis achieved using electrocautery, also topical hemostatic agents using powdered Surgicel and snow Surgicel placed at the gallbladder fossa to further assure hemostasis. Endoclips noted be in place and intact without any bleeding or any leakage. Hemostasis was adequate and satisfactory. The subxiphoid trocar sites fascial defect was closed with 0 Vicryl using Endo Closure device. Instruments and trocars removed, pneumoperitoneum was evacuated and the incisions closed with 4-0 Monocryl in subcuticular fashion. Instrument needle and sponge counts were all reported to be correct X2. Patient tolerated the procedure well, was extubated, breathing spontaneously and without difficulty and was transferred to postanesthesia care in stable condition. Pathology / specimen Other (Gallbladder and contents) Estimated Blood Loss 100 Condition Stable Disposition PACU Surgeon Liam Greenwood MD Surgical Staff Operation Date: 06/30/25 15:45 Case Staff Anesthesiologist: Dipak Ricketts RN First Assistant: Ny Melgoza
--- NOTE | 2025-06-30 16:07 | SUR.PHASEI ---
1602 report given to Kailyn SIMPSON, patient meets discharge criteria from recovery, awake and talking with staff, breathing unlabored, vital signs stable, denies pain, eating ice chips; denies nausea 1607 Patient transported via gurney to room 377 without incident, Kailyn SIMPSON and COPPER ETCHER promptly in patients room and assisted with commercial loan underwriter with transferring patient from gurney to bed.
[2025-06-30] MEDS: ACETAMINOPHEN IVPB 1,000 MG/100 ML VIAL 250 MG IV ×2 (16:37→21:15)
[2025-06-30] MEDS: KCL 20 mEq/L in D5-1/2NS 20 MEQ/1,000 ML BAG 60 MEQ IV (17:02)
[2025-06-30] MEDS: CEFOXITIN 2 GM in SODIUM CHLORIDE 0.9% (Popper) 50 ML IV ×2 (17:44→23:36)
[2025-06-30] MEDS: MORPHINE SULF INJ 10 MG/ML VIAL 2 MG IVP (17:44)
[2025-06-30] MEDS: ONDANSETRON INJ 2 MG/ML INJ 2 ML 4 MG IVP (17:45)
--- NOTE | 2025-06-30 19:26 | PC.NURSE ---
PATIENT DIDN'T BRING IN MEDICATIONS, SHE IS NOT SURE WHAT SHE TAKES. FAMILY MADE AWARE TO BRING THE BOTTLES IN.
[2025-06-30] MEDS: ASCORBIC ACID 250 MG TABLET 500 MG PO (21:15)
[2025-06-30] MEDS: DOCUSATE SOD 100 MG CAPSULE PO (21:15)
[2025-07-01] VITALS (10 sets, daily range): BP systolic 110–148; BP diastolic 67–78; PULSE 56–75; RESP 16–94; TEMP 36.3–36.6; O2SAT 92–98
[2025-07-01] MEDS: ACETAMINOPHEN IVPB 1,000 MG/100 ML VIAL 250 MG IV ×2 (02:13→08:11)
[2025-07-01] MEDS: CEFOXITIN 2 GM in SODIUM CHLORIDE 0.9% (Popper) 50 ML IV ×3 (05:30→21:20)
[2025-07-01 06:38] LABS: Basophils # (Auto) 0.0 Thou/mm3 (0.0-0.2); Basophils % (Auto) 0 % (0-2.5); Eosinophils # (Auto) 0.0 Thou/mm3 (0.0-0.5); Eosinophils % (Auto) 0 % (0-10); Hematocrit 36.1 % (36.0-46.0); Hemoglobin 11.3 g/dL (12.0-16.0); Immature Granulocytes Auto 0.04 Thou/mm3 (0.00-0.00); Lymphocytes # (Auto) 1.3 Thou/mm3 (1.0-4.8); Lymphocytes % (Auto) 11 % (10-50); Mean Corpuscular HGB Conc 31.3 g/dl (31.0-37.0); Mean Corpuscular Hemoglobin 25.2 pg (25.0-35.0); Mean Corpuscular Volume 81 fL (80-100); Monocytes # (Auto) 0.7 Thou/mm3 (0.0-0.8); Monocytes % (Auto) 6 % (0-12); Neutrophils # (Auto) 9.4 Thou/mm3 (1.8-7.7); Neutrophils % (Auto) 83 % (37-80); Nucleated Red Blood Cell # 0.00 Thou/mm3 (0.00-0.00); Nucleated Red Blood Cell % 0 /100 WBC (0); Platelet Count 188 Thou/mm3 (140-440); RDW Standard Deviation 46.7 fL (36.4-46.3); Red Blood Count 4.48 Miln/mm3 (4.00-5.20); White Blood Count 11.4 Thou/mm3 (3.6-11.0)
[2025-07-01 06:58] LABS: Alanine Aminotransferase 44 U/L (10-49); Albumin, Serum 3.5 gm/dL (3.4-4.8); Albumin/Globulin Ratio 1.6 (1.2-2.2); Alkaline Phosphatase 96 U/L (46-116); Anion Gap 10 (7-16); Aspartate Amino Transferase 59 U/L (0-34); BUN/Creatinine Ratio 6 Ratio (12-20); Bilirubin,Total 0.5 mg/dL (0.3-1.2); Blood Urea Nitrogen 7 mg/dL (9-23); Calcium 9.1 mg/dL (8.3-10.6); Calcium (Corrected) 9.5 mg/dL (8.5-10.1); Carbon Dioxide 24.5 mMol/L (20.0-31.0); Chloride 108 mMol/L (98-107); Creatinine (Component) 1.1 mg/dL (0.6-1.3); Estimated Creatinine Clearance 36.9 mL/min (>60); Globulin 2.2 gm/dL (2.3-3.5); Glucose 141 mg/dL (74-106); Osmolality,Calculated 283 (275-295); Potassium 3.9 mMol/L (3.4-5.1); Sodium 142 mMol/L (136-145); Total Protein 5.7 gm/dL (5.7-8.2); eGFR 50 See Note
[2025-07-01] MEDS: DOCUSATE SOD 100 MG CAPSULE PO ×2 (08:11→21:18)
[2025-07-01] MEDS: ZINC SULFATE 220 MG CAPSULE PO (08:11)
[2025-07-01] MEDS: ASCORBIC ACID 250 MG TABLET 500 MG PO ×2 (08:12→21:19)
--- NOTE | 2025-07-01 09:10 | PD.RESPRO ---
Documentation for date of: 07/01/25 Subjective Subjective Interval history: Chief complaint: Abdominal pain History of present illness: Informant daughter Dina Arroyo is an 80-year-old F with PMH of hypertension who presented to the emergency department 4 days ago with abdominal pain and had workup at that time showing findings suggestive for acute calculous cholecystitis. During that time, she was discharged home on PO antibiotics and told to follow-up outpatient with Dr. Vásquez. Patient was seen in Dr. Vásquez's office yesterday and recommended to go to the emergency department for a cholecystectomy. Pain continued to worsen and she presented again to the ER today. Dr. Greenwood was consulted and agreed to take her for a cholecystectomy that afternoon. In the review of systems, patient endorsed having some nausea and vomiting as well as decreased appetite for the last few days. However, she denied any fever, chills, or blood in the stools. In the ED, vitals showed: BP 147/83, Pulse 81, RR 17, Temp 99.0, O2 Sat 97% on room air Labs at the time were unremarkable. Imaging: Ultrasound revealed gallstones with gallbladder wall thickening and edema. CT scan showed acute calculus cholecystitis. Patient was admitted to the medical floor for acute calculous cholecystitis after consulting with Dr. Greenwood, who agreed to perform a cholecystectomy for the patient. Interval History 07/01/2025: No overnight events. Patient seen and examined at bedside; they report feeling much better today after the cholecystectomy with no new complaints or concerns. She endorses some RUQ abdominal pain still but it is much improved. Notable labs today include: Hgb 11.3, creatinine bump to 1.1 from 0.8, eGFR drop to 50 from >60, AST bump to 59 from 25, and ALT bump to 44 from 21. Per General Surgery recommendations, patient is to continue her IV antibiotics for the empyema of her gallbladder, advance her diet to full liquids, increase ambulation, and use incentive spirometer. She can be discharged when General Surgery (Dr. Greenwood) gives their blessing. Exam Vital Signs Temp Pulse Resp BP Pulse Ox O2 Del Method O2 Flow Rate 97.5 F 61 18 128/78 95 Room Air 4 07/01/25 07:56 07/01/25 08:11 07/01/25 07:56 07/01/25 08:11 07/01/25 07:56 07/01/25 07:56 06/30/25 15:27 Narrative Exam Physical Exam: General: A/O x3, no acute distress. Adequately hydrated and nourished. Skin: Warm, dry, intact, no obvious rash. Head: Normocephalic, atraumatic. Eyes: EOMI. Anicteric, vision grossly intact. Ears: No ear pain, no ear discharge, Hearing grossly intact. Nose: No nasal discharge. Mouth/Throat: Oral mucosa moist. No obvious lesions in oropharynx. Neck: Neck supple. Cardiovascular: Regular rate and rhythm, no murmur, no JVD or carotid bruits. +S1/S2. Respiratory: Bilateral lungs are clear to auscultation, respirations unlabored, no crackles, no wheezing. No accessory muscle use. Gastrointestinal: Tenderness noted in the epigastric and RUQ. Soft, non-distended, no palpable masses. No guarding or rebound tenderness. Peristalsis present. Extremities: Symmetrical, no significant deformities. No edema, no cyanosis, no clubbing. Neuro: No focal deficits observed. Conversant, moving all extremities. No overt cerebellar signs/incoordination. Psychiatric: Cooperative, appropriate affect. Objective Labs 07/01/25 05:30 07/01/25 05:30 Labs: Laboratory Results - last 24 hr 06/30/25 06/30/25 07/01/25 09:43 09:50 05:30 WBC 6.6 11.4 H D RBC 4.57 4.48 Hgb 11.7 L 11.3 L Hct 37.3 36.1 MCV 82 81 MCH 25.6 25.2 MCHC 31.4 31.3 RDW Std Deviation 47.7 H 46.7 H Plt Count 214 188 Neut % (Auto) 65 83 H Lymph % (Auto) 23 11 [place] % (Auto) 7 6 Eos % (Auto) 3 0 Baso % (Auto) 1 0 Neut # (Auto) 4.3 9.4 H Lymph # (Auto) 1.5 1.3 [place] # (Auto) 0.5 0.7 Eos # (Auto) 0.2 0.0 Baso # (Auto) 0.1 0.0 Immature Gran # (Auto) 0.04 H 0.04 H Absolute Nucleated RBC 0.00 0.00 Immature Gran % 1 H 0 Nucleated RBC % 0 0 PT 13.2 H INR 1.2 APTT 28.7 Sodium 144 142 Potassium 4.3 3.9 Chloride 110 H 108 H Carbon Dioxide 27.2 24.5 Anion Gap 7 10 BUN 9 7 L Creatinine 0.8 1.1 Estim Creat Clear Calc 50.8 L 36.9 L eGFR > 60 50 L BUN/Creatinine Ratio 11 L 6 L Glucose 106 141 H Calculated Osmolality 285 283 Calcium 9.3 9.1 Corrected Calcium 9.5 9.5 Total Bilirubin 0.5 0.5 AST 25 59 H ALT 21 44 Alkaline Phosphatase 100 96 Troponin I < 0.020 Total Protein 6.1 5.7 Albumin 3.7 3.5 Globulin 2.4 2.2 L Albumin/Globulin Ratio 1.5 1.6 Lipase 23 Ur Collection Type Clean Catch Urine Color Yellow Urine Clarity Clear Urine pH 5.5 Ur Specific [place] 1.011 Urine Protein Negative Urine Glucose (UA) Negative Urine Ketones Negative Urine Blood Negative Urine Nitrite Negative Urine Bilirubin Negative Urine Urobilinogen (Auto) Negative Ur Leukocyte Esterase Positive Urine RBC 1 Urine WBC 3 Ur Squamous Epith Cells 1 Urine Bacteria Rare Ur Culture Indicated? Not Indicated Quality Measures Quality Measures none Advance care planning discussed with:: patient Assessment & Plan Assessment Current Active Medications: Generic Name Dose Route Start Last Admin Trade Name Denisha PRN Reason Stop Dose Admin Ascorbic Acid 500 mg 06/30/25 21:00 07/01/25 08:12 Ascorbic Acid 250 Mg Tablet PO 07/30/25 20:59 500 mg BID SHA Administration Docusate Sodium 100 mg 06/30/25 21:00 07/01/25 08:11 Docusate Sod 100 Mg Capsule PO 07/30/25 20:59 100 mg BID SHA Administration Protocol Acetaminophen 1,000 mg in 100 mls @ 250 mls/hr 06/30/25 15:02 07/01/25 08:11 Ofirmev Inj IV 07/01/25 09:25 250 mls/hr Q6H SHA Administration Cefoxitin Sodium 2 gm/ Sodium 50 mls @ 100 mls/hr 06/30/25 18:00 07/01/25 05:30 Chloride IV 07/07/25 17:59 100 mls/hr Q6HR SHA Administration Lisinopril 10 mg 07/01/25 09:00 07/01/25 08:11 Lisinopril 2.5 Mg Tablet PO 07/31/25 08:59 10 mg BID SHA Administration Morphine Sulfate 2 mg 06/30/25 12:53 06/30/25 17:44 Morphine Sulf Inj 10 Mg/Ml Vial IVP 2 mg Q4HR PRN Administration PAIN Ondansetron HCl 4 mg 06/30/25 16:21 06/30/25 17:45 Ondansetron Inj 2 Mg/Ml Inj 2 Ml IVP 07/30/25 16:20 4 mg Q6HR PRN Administration NAUSEA OR VOMITING Protocol Propranolol HCl 20 mg 07/01/25 21:00 Propranolol 10 Mg Tablet PO 07/31/25 20:59 HS SHA Zinc Sulfate 220 mg 07/01/25 09:00 07/01/25 08:11 Zinc Sulfate 220 Mg Capsule PO 07/31/25 08:59 220 mg QDAY SHA Administration Plan Dina Arroyo is an 80-year-old F with PMH of hypertension who presented to the emergency department 4 days ago with abdominal pain and had workup at that time showing findings suggestive for acute calculous cholecystitis. Patient was admitted to the medical floor 4 days later for acute calculous cholecystitis after consulting with Dr. Greenwood, who agreed to perform a cholecystectomy for the patient. Patient is now s/p cholecystectomy and doing well; she may be discharged when General Surgery (Dr. Greenwood) gives their blessing. #Acute calculous cholecystitis (resolved) Patient initially presented to the ED 4 days ago with abdominal pain and workup at the time showed acute calculous cholecystitis She was discharged home with PO antibiotics but the pain worsened and she presented to the ED again on 06/30 06/30 gallbladder US revealed multiple gallstones and gallbladder wall edema showing acute calculous cholecystitis Patient is s/p cholecystectomy and doing well Treatment Plan -Per General Surgery: 1. IV antibiotics for empyema of the gallbladder: 2. Advance diet to full liquids 3. Increase ambulation 4. Use incentive spirometer -Pain management if necessary -Discharge if General Surgery approves #Hypertension, benign (improving) Admission BP 147/83, now 125/77 after being given home antihypertensive regimen Treatment Plan -Restarted patient's home medications: PO lisinopril 10 mg BID, PO propanolol 20 mg qHS Hospital Management: Disposition: discharge when General Surgery approves so Diet: full liquid (will advance to low fat tomorrow morning, 07/02) GI Prophylaxis: none Bowel Prophylaxis: Senna DVT Prophylaxis: Heparin 5,000 U BID CODE STATUS: Full Code I have examined the patient and conferred with the nephrology attending, Dr. Vásquez, regarding them. Marcos Blair, PGY-1 Internal Medicine Attending Provider Attestation/Addendum Patient seen and examined with resident physician Dr. Blair. Note reviewed, agree with findings and recommendations. Patient currently seen in medical floor. Status post cholecystectomy. Postop day #1. Tolerating liquid diet. Ambulate, advance diet per surgery and possible discharge tomorrow.
[2025-07-01] MEDS: HEPARIN SOD INJ 5000 UNIT/ML VIAL SC ×2 (11:11→21:19)
--- NOTE | 2025-07-01 13:25 | PD.SURPROG ---
Documentation for date of: 07/01/25 Subjective Subjective Narrative: Patient is seen and examined. Her pain is improving. She is tolerating clear liquids Exam Vital Signs Temp Pulse Resp BP Pulse Ox O2 Del Method O2 Flow Rate 97.5 F 56 L 16 125/77 95 Room Air 4 07/01/25 11:47 07/01/25 11:47 07/01/25 11:47 07/01/25 11:47 07/01/25 11:47 07/01/25 11:47 06/30/25 15:27 Constitutional Constitutional: no acute distress Routine Abdominal Exam Comments: Abdomen is soft and nondistended. She still has some right upper quadrant tenderness to palpation with guarding, no rebound tenderness or peritonitis. Incisions are clean, dry and intact Assessment & Plan Assessment Additional comments: Postop day #1 status post laparoscopic cholecystectomy Plan Continue IV antibiotics for empyema of the gallbladder. Advance to full liquids. Increase ambulation and use incentive spirometer. PROCEDURES: Procedures Laparoscopic cholecystectomy
[2025-07-01] MEDS: MORPHINE SULF INJ 10 MG/ML VIAL 2 MG IVP (15:40)
--- NOTE | 2025-07-01 18:29 | PC.NURSE ---
Dr. Vásquez is okay with patient discharge if Dr. Greenwood is ok with DC. Dr. Greenwood came to round on patient. He will discharge patient in two days, patient needs to continue antibiotics.
[2025-07-01] MEDS: PROPRANOLOL 10 MG TABLET 20 MG PO (21:19)
[2025-07-01] MEDS: HYDROcodone/APAP 5/325 TABLET 1 TAB PO (21:21)
[2025-07-02] VITALS: BP 148/74; PULSE 67; RESP 18; TEMP 36.7; O2SAT 96
--- NOTE | 2025-07-02 02:11 | PC.NURSE ---
Pt assisted up to the bathroom tolerated well, assisted back in bed without any problem.
[2025-07-02 03:28] VITALS: PULSE 71; RESP 18; RESP 97
[2025-07-02 04:00] VITALS: BP 143/71; PULSE 69; RESP 20; TEMP 36.6; O2SAT 93
[2025-07-02] MEDS: CEFOXITIN 2 GM in SODIUM CHLORIDE 0.9% (Popper) 50 ML IV ×2 (05:32→13:42)
[2025-07-02 07:42] VITALS: BP 167/76; PULSE 74; RESP 16; TEMP 36.3; O2SAT 95
[2025-07-02 08:49] LABS: Basophils # (Auto) 0.0 Thou/mm3 (0.0-0.2); Basophils % (Auto) 1 % (0-2.5); Eosinophils # (Auto) 0.1 Thou/mm3 (0.0-0.5); Eosinophils % (Auto) 1 % (0-10); Hematocrit 38.9 % (36.0-46.0); Hemoglobin 12.1 g/dL (12.0-16.0); Immature Granulocytes Auto 0.02 Thou/mm3 (0.00-0.00); Lymphocytes # (Auto) 1.1 Thou/mm3 (1.0-4.8); Lymphocytes % (Auto) 15 % (10-50); Mean Corpuscular HGB Conc 31.1 g/dl (31.0-37.0); Mean Corpuscular Hemoglobin 25.3 pg (25.0-35.0); Mean Corpuscular Volume 81 fL (80-100); Monocytes # (Auto) 0.6 Thou/mm3 (0.0-0.8); Monocytes % (Auto) 8 % (0-12); Neutrophils # (Auto) 5.6 Thou/mm3 (1.8-7.7); Neutrophils % (Auto) 75 % (37-80); Nucleated Red Blood Cell # 0.00 Thou/mm3 (0.00-0.00); Nucleated Red Blood Cell % 0 /100 WBC (0); Platelet Count 173 Thou/mm3 (140-440); RDW Standard Deviation 48.2 fL (36.4-46.3); Red Blood Count 4.79 Miln/mm3 (4.00-5.20); White Blood Count 7.6 Thou/mm3 (3.6-11.0)
[2025-07-02 08:55] VITALS: BP 167/76; PULSE 74
[2025-07-02] MEDS: ASCORBIC ACID 250 MG TABLET 500 MG PO (08:55)
[2025-07-02] MEDS: ZINC SULFATE 220 MG CAPSULE PO (08:55)
[2025-07-02] MEDS: DOCUSATE SOD 100 MG CAPSULE PO (08:55)
[2025-07-02] MEDS: HEPARIN SOD INJ 5000 UNIT/ML VIAL SC (08:55)
[2025-07-02] MEDS: LACTULOSE SYRUP 20 GM/30 ML UDC 30 GM PO (09:28)
--- NOTE | 2025-07-02 09:30 | ESDS_ITS ---
Planned Discharge Date 07/02/25 DS: Providers Provider Date of admission: 06/30/25 12:54 Primary care physician: Jing Vásquez MD Admitting Provider: Jing Vásquez MD Attending Provider on Admission: Jing Vásquez MD Consults: 06/30/25 12:54 Consult to General Surgery Stat Comment: acute roula Consulting Provider: Liam Greenwood Attending Provider on DC: RESIDENT Brady Discharging Provider: RESIDENT Brady DS: Diagnosis Problem List Completed Was Problem List Reviewed/Reconciled?: Yes Hospital Course Hospital Course Hospital course: Summary: Dina Arroyo is an 80-year-old F with PMH of hypertension who presented to the emergency department 4 days ago with abdominal pain and had workup at that time showing findings suggestive for acute calculous cholecystitis. ER: Patient presented to the ED and was seen by ED provider at 11:35 on 06/30/2025 for their presentation of RUQ abdominal pain radiating to the epigastric area ongoing for 3 days. At the time, labs were unremarkable. Pertinent imaging findings were gallbladder wall thickening and edema on ultrasound and acute calculous cholecystitis on CT scan. General Surgery (Dr. Greenwood) was consulted and patient was admitted for laparoscopic cholecystectomy indicated for acute calculous cholecystitis w/ gallbladder empyema. Hospital: During patient's hospital course, the main medical diagnosis addressed was acute calculous cholecystitis w/ gallbladder empyema. In terms of this diagnosis, patient had a laparoscopic cholecystectomy performed on 06/30/25 by General Surgery. The procedure was successful and patient reported feeling much better afterwards. She was then managed with IV antibiotics for the gallbladder empyema, slowly advanced on her diet, told to ambulate, and told to use her incentive spirometer. Patient is safe to discharge to home. #Acute calculous cholecystitis s/p cholecystectemy #Gallbladder empyema #Hypertension Discharge instructions: Continue home medications as prescribed New medications -Ciprofloxacin take twice a day for 14 days. -continue taking stool softener docusate 100mg twice a day as needed -for pain you can take Dorothy 1 tab as every 6 hours as needed -ibuprofen 600 mg with food every 8hrs as needed Please follow up with Dr. Vásquez, your primary care doctor in 1 week Please follow up with Dr. Greenwood. Status at Discharge Cognitive/Behavioral Status at Discharge: stable Functional Status at Discharge: independent ambulation Overall Status at Discharge: patient is back to baseline Total Time Spent Providing and/or Coordinating Discharge Services: at least 30 minutes of care and coordination Plan discussed with nephrology attending Dr. Fahad Blair, DO Internal Medicine PGY-1 Status at Discharge Cognitive/behavioral status at discharge: stable Functional status at discharge: independent ambulation Overall status at discharge: patient is progressing back to baseline Time Spent with Patient Time attestation: Total time spent providing and/or coordinating discharge services: Time spent: Greater than 30 minutes Exam Vital Signs Temp Pulse Resp BP Pulse Ox O2 Del Method O2 Flow Rate 97.3 F 74 16 167/76 H 95 Room Air 4 07/02/25 07:42 07/02/25 08:55 07/02/25 07:42 07/02/25 08:55 07/02/25 07:42 07/02/25 07:42 06/30/25 15:27 Narrative Exam Physical Exam: General: A/O x3, no acute distress. Adequately hydrated and nourished. Skin: Warm, dry, intact, no obvious rash. Head: Normocephalic, atraumatic. Eyes: EOMI. Anicteric, vision grossly intact. Cardiovascular: Regular rate and rhythm, no murmur, +S1/S2. Respiratory: Bilateral lungs are clear to auscultation, respirations unlabored, no crackles, no wheezing. No accessory muscle use. Gastrointestinal: Tenderness noted in the epigastric and RUQ. Laparascopic wounds noted to be healing well. Soft, non-distended, no palpable masses. No guarding or rebound tenderness. Peristalsis present. Extremities: Symmetrical, no significant deformities. No edema, no cyanosis, no clubbing. Neuro: No focal deficits observed. Conversant, moving all extremities. No overt cerebellar signs/incoordination. Psychiatric: Cooperative, appropriate affect. Discharge Plan Plan Patient Disposition: HOME (Self Care) Patient condition on transfer: Stable Care Plan Goals: Continue home medications as prescribed New medications -Ciprofloxacin take twice a day for 14 days. -continue taking stool softener docusate 100mg twice a day as needed -for pain you can take Dorothy 1 tab as every 6 hours as needed -ibuprofen 600 mg with food every 8hrs as needed Please follow up with Dr. Vásquez, your primary care doctor in 1 week Please follow up with Dr. Greenwood. Prescriptions/Referrals Prescriptions/Med Rec: New hydrocodone-acetaminophen 5-325 mg Tablet 1 tab PO Q6H MDD 4 PRN (Reason: pain (scale score 7-10)) Qty: 10 0RF docusate sodium 100 mg Capsule 100 mg PO BID Qty: 30 0RF ibuprofen 600 mg tablet 600 mg PO Q8H PRN (Reason: pain (scale score 4-6)) Qty: 15 0RF ciprofloxacin HCl 500 mg tablet 500 mg PO BID Qty: 14 0RF Continued ascorbic acid (vitamin C) [Vitamin C] 500 mg Tablet 500 mg PO QDAY lisinopril 10 mg tablet 1 tab PO BID propranolol 20 mg tablet 1 tab PO HS Patient Comments: TAKE 1 TABLET BY MOUTH TWICE DAILY cholecalciferol (vitamin D3) [Vitamin D3] 25 mcg (1,000 unit) Capsule 25 mcg PO QDAY vitamin [id number] acid 500-400 mcg Tablet 1 tab PO QDAY Rx Instructions: administer with a meal Referrals: Liam Greenwood MD [Physician] - Jing Vásquez MD [Primary Care Provider] - Patient/Caregiver Discharge Instructions Meds to Beds: No Discharge Activity: activity as tolerated Other Discharge Diet Instructions: low fat diet. Education Materials: Cholecystectomy, Preventing Surgical Site Infections Print Language: [place] Activity Restrictions/Additional Instructions: May shower. Avoid lifting, straining, pulling or pushing for 4 weeks. May take over the counter laxatives if no bowel movement in 2 days. Follow up with Dr. Greenwood in 2 weeks, call [phone] for an appointment. Continue low-fat diet for 1 week then may advance diet as tolerated. f/u with dr. vásquez in 1-2 weeks Stand Alone Forms: [employer] Award Info., Patient Portal Info Letter Discharge Order Discharge Orders: Discharge (Routine); Ordered 07/02/25 Ordered By: Jing Vásquez Quality Discharge Quality Measures VTE prophylaxis MD Attestestation MD Attestation Patient seen and examined with resident physician Dr. Blair. Note reviewed, agree with findings and recommendations. Patient currently seen in medical floor. Status post cholecystectomy. Postop day #2. Advance to diet. Had a bowel movement. Ambulate, discharge today. Follow-up with Dr. Greenwood in 1 to 2 weeks. Follow-up with me in 1 to 2 weeks
[2025-07-02 10:08] LABS: Alanine Aminotransferase 189 U/L (10-49); Albumin, Serum 3.6 gm/dL (3.4-4.8); Albumin/Globulin Ratio 1.7 (1.2-2.2); Alkaline Phosphatase 233 U/L (46-116); Anion Gap 8 (7-16); Aspartate Amino Transferase 238 U/L (0-34); BUN/Creatinine Ratio 8 Ratio (12-20); Bilirubin,Total 1.2 mg/dL (0.3-1.2); Blood Urea Nitrogen 6 mg/dL (9-23); Calcium 9.2 mg/dL (8.3-10.6); Calcium (Corrected) 9.5 mg/dL (8.5-10.1); Carbon Dioxide 28.3 mMol/L (20.0-31.0); Chloride 106 mMol/L (98-107); Creatinine (Component) 0.8 mg/dL (0.6-1.3); Estimated Creatinine Clearance 50.8 mL/min (>60); Globulin 2.1 gm/dL (2.3-3.5); Glucose 103 mg/dL (74-106); Magnesium 1.8 mg/dL (1.6-2.6); Osmolality,Calculated 280 (275-295); Phosphorous 2.5 mg/dL (2.4-5.1); Potassium 4.3 mMol/L (3.4-5.1); Sodium 142 mMol/L (136-145); Total Protein 5.7 gm/dL (5.7-8.2); eGFR > 60 See Note
--- NOTE | 2025-07-02 11:00 | PC.SS ---
Patient Roge Arroyo is a 80 Year old female admitted for Acute Cholecystitis. SS met withe patient at bedside to discuss discharge plan and verify demographic information. Patient reports she lives at home with her . Patient reports her sister, Dina Jaimes is her surrogate decision maker, [phone]. Patient reports that prior to admission she did not utilize any source of DME to assist with ambulation. Choice of pharmacy is [facility]. PCP is Dr. Aleshia Ch. At time of discharge patient will return back home. No further needs identified at the time. Next of kin: Sister, Fiona Arroyo Discharge plan: Home
[2025-07-02 12:00] VITALS: BP 150/92; PULSE 72; RESP 16; TEMP 36.3; O2SAT 98
--- NOTE | 2025-07-02 12:14 | PD.SURPROG ---
Documentation for date of: 07/02/25 Subjective Subjective Narrative: Patient is seen and examined. Her pain is improving significantly. She is tolerating diet without nausea or vomiting Exam Vital Signs Temp Pulse Resp BP Pulse Ox O2 Del Method O2 Flow Rate 97.3 F 72 16 150/92 H 98 Room Air 4 07/02/25 12:00 07/02/25 12:00 07/02/25 12:00 07/02/25 12:00 07/02/25 12:00 07/02/25 12:00 06/30/25 15:27 Constitutional Constitutional: no acute distress Routine Abdominal Exam Comments: Abdomen is soft and nondistended. Incisions are clean, dry and intact Assessment & Plan Assessment Additional comments: Postop day #2 status post laparoscopic cholecystectomy Plan May discharge home on oral antibiotics for 7 days PROCEDURES: Procedures Laparoscopic cholecystectomy
== END 2025-07-02 15:17 | disposition home or self-care (01) | DRG 419 ==
LOC: SERX 13:07 → SERHOLD 13:58 → S3SX 07-01 03:09 → SERHOLD 07-02 05:53 → S3SX 07-02 05:53
PROVIDERS: Nurse Practitioner Primary Care; Surgery; Admitting Provider Internal Medicine; Emergency Provider Family Medicine; PCP Internal Medicine; Visit Provider Internal Medicine
PROC: 0FT44ZZ Resection of Gallbladder, Percutaneous Endoscopic Approach (ICD-10-PCS; CPT 47562; principal; 2025-06-30 14:00)
DX: K80.00 Calculus of gallbladder with acute cholecystitis without obstruction (principal); I10 Essential (primary) hypertension; Z90.710 Acquired absence of both cervix and uterus; Z79.899 Other long term (current) drug therapy; Z96.659 Presence of unspecified artificial knee joint
CPT/HCPCS: 36415; 76705; 80053; 81001; 83690; 83735; 84100; 84484; 85025; 85610; 85730; 93005; 96374; 99284; A4217; A4649; J0131; J0694; J1100; J1644; J1885; J2270; J2405; J2704; J3010; J3480; J3490; J7050; A9270